=== PATIENT | female | born 1975 | race Caucasian/White ===

== ENCOUNTER 2022-04-20 22:09 | Emergency (ER) | payer OTHER ==
[~2022-04-20] VITALS: Ht 170.2 cm; Wt 68.0 kg
--- NOTE | 2022-04-20 22:49 | NUR ---
BIBSELF C/O RIGHT ARM NUMBESS X 2 WEEKS AND MID CP FOR A FEW DAYS. AWAKE AND ALERT X 4 BREATHING EVEN AND UNLABORED. DENIES ANY PAIN OR RECENT INJURIES. PLACED ON MONITOR AND V/S WNL.
--- NOTE | 2022-04-20 22:56 | NUR ---
PT TRANSPORTED TO CT VIA [facility]
[2022-04-20 23:40] LABS: BASOPHILS % (AUTO) 0.6 % (0.0-2.0); HEMATOCRIT 43 % (33-45); HEMOGLOBIN 14.6 g/dL (11.5-14.8); LYMPHOCYTES # (AUTO) 1.4 K/uL (0.8-4.8); LYMPHOCYTES % (AUTO) 27.8 % (20.0-44.0); MEAN CORPUSCULAR HGB CONC 34 g/dl (31.0-36.0); MEAN CORPUSCULAR VOLUME 86 fL (82-100); MONOCYTES # (AUTO) 0.7 K/uL (0.1-1.30); MONOCYTES % (AUTO) 13.2 % (2.0-12.0); NEUTROPHILS # (AUTO) 2.8 K/uL (1.8-8.9); NEUTROPHILS % (AUTO) 54.4 % (43.0-81.0); PLATELET COUNT (AUTO) 109 K/uL (150-450); RED BLOOD CELL COUNT(AUTO) 5.01 MIL/uL (4.0-5.2); WHITE BLOOD COUNT (AUTO) 5.1 K/uL (4.3-11.0)
[2022-04-20 23:46] LABS: CALCIUM, SERUM 9.4 mg/dL (8.5-10.1); CREATININE 0.8 mg/dL (0.6-1.3); POTASSIUM 3.8 mmol/L (3.5-5.1)
--- NOTE | 2022-04-21 01:06 | NUR ---
Patient discharged to home in stable condition. Written and verbal after care instructions given. Patient verbalizes understanding of instruction.
[2022-04-21 01:09] VITALS: BP 111/58
== END 2022-04-21 01:09 | disposition home or self-care (01) ==
LOC: ER 22:09
DX: R20.2 Paresthesia of skin (principal); M48.02 Spinal stenosis, cervical region
CPT/HCPCS: 36415; 70450-TC; 72125-TC; 80048-TC; 84484-TC; 85025-TC